=== PATIENT | male | born 1960 | race Caucasian/White ===

== ENCOUNTER 2020-11-11 09:03 | Day surgery (SDC) | payer OTHER ==
--- NOTE | 2020-11-10 07:38 | EKG ---
Test Date: 2020-11-09 Test Time: 09:50:38 Speech Language Pathologist Travel: ET MEASUREMENT RESULTS: Intervals: Rate: 93 NC: 140 QRSD: 82 QT: 350 QTc: 435 [place]: P: NC: 140 QRS: -28 T: -24 INTERPRETIVE STATEMENTS: Normal sinus rhythm Low voltage QRS Septal infarct, age undetermined Abnormal ECG No previous ECG available for comparison Electronically Signed On 11-10-20 07:34:50 CDT by Syed Calvo
[2020-11-11] MEDS ORDERED: NA CHLORIDE 0.9% 1,000 ML ONE (09:43)
[2020-11-11] MEDS ORDERED: MIDAZOLAM HCL 2 MG/2 ML INJ ONE (09:49)
[2020-11-11] MEDS ORDERED: FENTANYL CITR 100 MCG/2 ML ONE (09:49)
[2020-11-11] MEDS ORDERED: propofoL 200 MG/20 ML VIAL IV ONE (09:49)
[2020-11-11] MEDS ORDERED: LIDOCAINE 1% MPF 5 ML VIAL ONE (09:49)
[2020-11-11] MEDS ORDERED: dexAMETHasone 10 MG/ML VIAL ONE (09:49)
[2020-11-11] MEDS ORDERED: ROCURONIUM 50 MG/5 ML VIAL IV ONE (09:50)
[2020-11-11] MEDS ORDERED: OXYMETAZOLINE HCL 0.05% 15ML NAS ONE ×2 (10:27→10:53)
[2020-11-11] MEDS ORDERED: LIDOCAINE 1% W/EPI 1:100,000 MDV 20 ML VIAL ONE (10:27)
--- NOTE | 2020-11-11 12:00 | P.BOP ---
Preoperative diagnosis: nasal obstruction, septal deviation Postoperative diagnosis: same Primary procedure: septoplasty Secondary procedure: inferior turbinate intramural cautery and downfracture Injection Molding Machine Offbearer: NONE,NONE Estimated blood loss: 10ml Specimen: septal bone fragments Anesthesia: General Complications: None Implants: Mulligan Splints Fluids & blood products: 600ml crystalloid Transferred to: Recovery Room Condition: Good
[2020-11-11] MEDS ORDERED: KETOROLAC 30 MG/ML INJ ONE (12:06)
[2020-11-11] MEDS ORDERED: ONDANSETRON 4 MG/2 ML VIAL ONE (12:06)
[2020-11-11] MEDS ORDERED: MORPHINE 10 MG/ML VIAL ONE (12:13)
[2020-11-11] MEDS ORDERED: PROMETHAZINE INJ 25 MG/ML AMP ONE (12:42)
[2020-11-11] MEDS ORDERED: TRAMADOL HCL 50 MG TAB ONE (13:14)
[2020-11-11 13:58] VITALS: BP 134/90; TEMP 97.3
[2020-11-11 14:00] VITALS: O2SAT 98
--- NOTE | 2020-11-11 21:56 | OP ---
Date of Procedure: 11/11/2020 Surgeon: Bernadine Jewell MD Preoperative Diagnoses: Nasal obstruction, septal deviation. Postoperative Diagnoses: Nasal obstruction, septal deviation, nasal inferior turbinate hypertrophy. Procedures: 1.Septoplasty. 2.Intramural submucosal cauterization of turbinates. 3.Downfracture of turbinates. Indication For Procedure: Mr. Pelayo presented with nasal obstruction, unresponsive to medical therapy , and was found to have a right-sided septal deviation. The risks, benefits, and alternatives were d iscussed with the patient, who agreed to proceed. Procedure In Detail: The patient was brought to the operating room. He was placed under general ane sthesia via oral endotracheal tube. The head of bed was turned 90 degrees. The nasal hairs were tri mmed. A speculum was used to perform a nasal exam demonstrating significant right-sided deviation wi th enlargements and hypertrophy of the inferior turbinates. The septum was injected with 1% lidocain e with epinephrine. Using a headlight and nasal speculum, a 15-blade scalpel was used to make a righ t hemitransfixion incision. The Michael elevator was used to elevate bilateral mucoperichondrial miley osteal flaps. During elevation of the mucosa over the right-sided bony spur, the mucosa was lacerate d due to the thinness of the tissue in this area. After isolation of the cartilaginous and bony sept um, a scalpel was used to incise through the cartilage leaving a 1.5 cm anterior and superior dorsal and caudal septal strut. The cartilage was removed and placed aside in saline. The bony deviation w as then removed by cutting superiorly using heavy scissors and removing the spur like portion. The m axillary crest was smoothed using a rasp with overall significant improvement in the degree of septal deviation. Additional bony portions of the deviation were removed using [place] rongeurs. With repl acement of the flaps, the nasal septum appeared significantly improved. The previously removed large portion of cartilage was re-examined and was carefully trimmed and shaved using a 15 blade to smooth and straighten the edges and remove irregularities. This fragment of cartilage was then replaced be tween the mucoperichondrial flaps. The hemitransfixion incision was closed in a running fashion usin g resorbable suture. Additional resorbable suture on a small Gibson needle was used to place mattress ing sutures to reapproximate the mucosal flaps to the cartilage. The nose was carefully suctioned an d attention was turned to the turbinates. A Baltazar elevator was used to downfracture the inferior t urbinates. A [place] elevator was used to carefully outfracture the middle turbinates. On reassessmen t, it was noted the superior and inferior aspects of the inferior turbinates demonstrated significant soft tissue swelling and decision was made to perform intramural cauterization. An unprotected need lepoint Bovie was passed into the submucosal tissues and used to cauterize and provide coagulation an d contraction of the soft tissues. A total of 3 passes were made along the height of the inferior tu rbinate. Due to the mucosal laceration of the right septal flap, decision was made to place Mulligan sp lints in order to provide protection of the mucosa and reduce the likelihood of scarring and synechia e formation between the septum and the turbinates. The Mulligan splints were placed and secured to the anterior septum using a 4-0 nylon suture. The oropharynx was thoroughly suctioned using a Yankauer. The pledget counts were all counted as correct and the patient was returned to care of Anesthesia fo r awakening and extubation, which proceeded without difficulty. Specimens: Septal contents. Estimated Blood Loss: 10 mL. Implants: Bilateral nasal Mulligan splints. Complications: None. Disposition: The patient will be discharged home later today with standard nasal precautions and fol low up with Dr. Jewell in 10 days for splint removal. LINDA/KALEB Voice ID: [id number] Report ID: [id number]
== END 2020-11-11 13:45 | disposition home or self-care (01) ==
LOC: OR 09:03
PROVIDERS: ATTEND Otolaryngology
PROC: 09SM0ZZ Reposition Nasal Septum, Open Approach (ICD-10-PCS; principal; 2020-11-11 10:30)
DX: K13.21 Leukoplakia of oral mucosa, including tongue (principal); J34.2 Deviated nasal septum; Z20.822 Contact with and (suspected) exposure to COVID-19
CPT/HCPCS: 93005; 82947 ×2; 88300; 30520; 30140; U0003; J2704; J2550; J2250; J3010; J7030; J2405; J1100

== ENCOUNTER 2022-07-17 07:19 | Day surgery (SDC) | payer OTHER ==
[2022-07-05 13:36] LABS: Potassium 3.9 mmol/L (3.5-5.1)
[2022-07-05 13:38] LABS: Absolute Lymphocytes (CBC) 2.4 K/uL (0.7-4.9); Hematocrit 52.5 % (39.6-49.0); Lymphocytes % 26.8 % (15.3-44.8); MCV 88.8 fL (80-100); MPV 8.2 fL (7.6-11.3); RBC Red Blood Cell Count 5.91 M/uL (4.33-5.43)
--- NOTE | 2022-07-06 17:40 | EKG ---
Test Date: 2022-07-05 Test Time: 12:51:55 Marketing And Development Coordinator: MAMI MEASUREMENT RESULTS: Intervals: Rate: 108 [place]: 142 QRSD: 86 QT: 338 QTc: 452 [place]: P: 35 [place]: 142 QRS: -42 T: 50 INTERPRETIVE STATEMENTS: Sinus tachycardia Left axis deviation Abnormal ECG Compared to ECG 11/09/2020 09:50:38 Left-axis deviation now present Sinus rhythm no longer present Myocardial infarct finding no longer present Electronically Signed On 07-06-22 17:37:54 NAILHEAD PUNCHER by Dirk Harris
[2022-07-17] MEDS ORDERED: NA CHLORIDE 0.9% 1,000 ML ONE ×2 (07:42→09:56)
[2022-07-17] MEDS ORDERED: CEFAZOLIN SODIUM 2 GM/VIAL ONE (07:42)
[2022-07-17] MEDS ORDERED: FENTANYL CITR 100 MCG/2 ML ONE (08:46)
[2022-07-17] MEDS ORDERED: propofoL 200 MG/20 ML VIAL IV ONE ×2 (08:46→09:09)
[2022-07-17] MEDS ORDERED: MIDAZOLAM HCL 2 MG/2 ML INJ ONE (08:46)
[2022-07-17] MEDS ORDERED: LIDOCAINE 1% MPF 5 ML VIAL ONE (08:47)
[2022-07-17] MEDS ORDERED: NS 0.9% VIAL 10 ML ONE (08:56)
[2022-07-17] MEDS ORDERED: PHENAZOPYRIDINE 100MG TAB PO ONE ×2 (09:04→11:01)
[2022-07-17] MEDS ORDERED: CODEINE 30MG/APAP 300MG TAB PO PRN (09:04)
[2022-07-17] MEDS ORDERED: KETOROLAC 30 MG/ML INJ ONE (09:17)
[2022-07-17] MEDS ORDERED: ONDANSETRON 4 MG/2 ML VIAL ONE (09:18)
--- NOTE | 2022-07-17 10:28 | OP ---
Surgeon: EMA SPARKS Preoperative Diagnosis: Benign prostatic hypertrophy with lower urinary tract obstruction and sympto ms. Postoperative Diagnosis: Benign prostatic hypertrophy with lower urinary tract obstruction and sympt oms. Principal Procedure: Prostatic urethral lift/UroLift with 7 implants placed, 3 on the right and 4 on the left. Indication For Procedure: Mr. Pelayo is a 62-year-old gentleman, who presented to the [facility] w ith bothersome lower urinary obstructive symptoms secondary to BPH, improved on Flomax, but incomplet franco. Cystoscopic evaluation revealed significant lateral lobar hypertrophy with mild elevation of th e median bar and minimal intravesical projection. Transrectal ultrasound revealed a 32.42 g gland. He was counseled on options for management of the obstruction and elected the prostatic urethral lift . Procedure In Detail: The patient was consented in the preoperative holding area before being transfe rred to operative suite where general anesthesia was induced. He was given Ancef 2 g IV antimicrobia l prophylaxis and pneumo boots were provided for DVT prophylaxis. He was placed in the lithotomy pos ition, padded and secured to the table appropriately. His genitalia were prepped with Hibiclens and he was draped in standard fashion. The case was begun using the 20-Macedonian UroLift sheath and visual obturator to traverse the urethra and into the bladder. The prostatic urethra was surveyed on the wa y in, and previously noted lateral lobar hypertrophy with slight elevation of the median bar was agai n noted. The visual obturator was then substituted for the UroLift delivery device and the first imp lant site targeted was in the left lateral wall approximately 1.5 cm from the bladder neck. Starting by sweeping down from the 12 o'clock position to the 10 o'clock position, about 10 degrees of compre ssion was obtained at 1.5 to 2 cm distal to the bladder neck, and the first pole of the trigger was p erformed after the safety had been released while still within the bladder. This delivered the needl e containing the implant through the substance of the prostate. Additional compression was then obta ined to ensure delivery of the needle to the capsular surface of the prostate and the second pole of the device then retracted the needle part way releasing the capsular tab to the surface of the prosta te. A third trigger then completely retracted the needle before advancing the device back toward the midline and then toward the bladder neck 2 to 3 mm until the monofilament was seen centered within t he delivery bay, and the fourth pull of the trigger then cut the suture applying the urethral implant and tensioning it appropriately. Visualization of the implant revealed excellent positioning approx imately 0.5 cm inside of the bladder neck and well invaginated into tissue at that location without e ntry into the bladder lumen. As a result, I then advance the device back into his bladder and switch ed for a new UroLift delivery device and then targeted a contralateral implant placement this time on the right side of his prostate about 1.5 cm distal to the bladder neck. Similarly positioned, after the implant was successfully placed, it also was embedded within tissue at least 0.5 cm from the dustin dder neck without entry into the bladder lumen and optimally position. I then replaced the delivery device for a third implant, which was placed at the level of the verumontanum on the left, and a four th implant was then placed at the verumontanum on the right. I then replaced the UroLift delivery de vice with the visual obturator and surveyed the channel that had been created. While a nice anterior channel was visible, there was still some anterior overhang at the bladder neck largely that seen to droop down and nearly kiss the elevated median bar. As a result, a fifth implant was placed at the bladder neck stacked above the prior bladder neck implant on the left successfully. Sixth implant wa s then placed on the right after survey using the visual obturator identified some asymmetric overhan g from the right side. Once this had been done and [address], a nice channel had been created, but within the mid zone of the prostate, there was still some anterior lateral overhang mos tly emanating from the left side. As a result, I targeted a seventh implant in the mid zone of the p rostate more anteriorly and sweeped the anterior tissue to the left lateral surface of the prostate a t about the 1 o'clock position before placing an implant successfully in that position. This then up on subsequent survey using the visual obturator, did nicely open the channel continuously from the ve rumontanum into the bladder with the bladder completely decompressed and fluid exiting showing a beau tiful continuous anterior channel with no anterior overhang or obstruction visualized. As a result, no further implants were deemed necessary, and I refilled his bladder before placing an 18-Macedonian Cou de catheter with ease. Approximately 30 cc of sterile water was placed in the balloon, and the jeremias ter was connected to a leg bag. The patient was then taken out of the lithotomy position, awakened f rom general anesthesia, transferred to a stretcher, and then transferred to the recovery room in good condition. Complications: None. Discharge Disposition: He will be given a voiding trial and if successful, he will be discharged wit hout the catheter. Subsequent followup should be established in about 1 month's time to discuss the results and assess his interval symptomatology. VALERIE/KALEB Voice ID: [id number] Report ID: [id number]
[2022-07-17] MEDS ORDERED: CODEINE 30MG/APAP 300MG TAB ONE (11:01)
[2022-07-17 11:36] VITALS: BP 92/66; TEMP 96.9; O2SAT 94
== END 2022-07-17 11:15 | disposition home or self-care (01) ==
LOC: OR 07:19
PROVIDERS: ATTEND Urology
PROC: 0T7D8DZ Dilation of Urethra with Intraluminal Device, Via Natural or Artificial Opening Endoscopic (ICD-10-PCS; principal; 2022-07-17 08:30)
DX: N40.1 Benign prostatic hyperplasia with lower urinary tract symptoms (principal); N13.8 Other obstructive and reflux uropathy
CPT/HCPCS: 93005; 87088; 85025; 87086; 80048; 36415; 85610; 82947 ×2; 52441; 52442 ×6; J2704 ×2; J2001; J2250; J3010; A4216; J7030 ×2; J2405